=== PATIENT | male | born 1940 | race Caucasian/White ===

== ENCOUNTER → 2018-12-10 | Day surgery (SDC) | payer MEDICARE ==
[2018-12-07 10:24] LABS: BASOPHILS % 0.7 % (0.0-1.0); EOSINOPHILS # (AUTO) 0.2 (0.0-0.4); EOSINOPHILS % 5.2 % (0.0-6.0); HEMATOCRIT 39.9 % (38.2-49.6); HEMOGLOBIN 12.8 g/dL (14.0-18.0); LYMPHOCYTES # (AUTO) 1.4 (1.0-3.2); LYMPHOCYTES % 33.4 % (18.0-39.1); MEAN CORPUSCULAR HEMOGLOBIN 30.9 pg (28-32); MEAN CORPUSCULAR HGB CONC 32.1 g/dL (31-35); MEAN CORPUSCULAR VOLUME 96.4 fL (81-99); MONOCYTES # (AUTO) 0.3 (0.2-0.8); MONOCYTES % 6.6 % (4.4-11.3); NEUTROPHILS # (AUTO) 2.2 (2.1-6.9); NEUTROPHILS % 53.6 % (38.7-80.0); PLATELET COUNT 257 x10e3/uL (140-360); RED BLOOD COUNT 4.14 x10e6/uL (4.3-5.7); RED CELL DISTRIBUTION WIDTH 14.9 % (11.7-14.4)
--- NOTE | 2018-12-07 10:40 | Diagnostic Imaging Report ---
EXAMINATION: PA and lateral views of the chest. COMPARISON: None CLINICAL HISTORY: Preoperative study for orthopedic procedure DISCUSSION: Lines/tubes: None. Lungs: The lungs are well inflated and clear. There is no evidence of pneumonia or pulmonary edema. Pleura: There is no pleural effusion or pneumothorax. Heart and mediastinum: Atherosclerotic calcification of the thoracic aorta. Otherwise, The cardiomediastinal silhouette is normal. Bones and soft tissues: No acute bony abnormalities. Posttraumatic deformity of the midshaft of the right clavicle. Degenerative changes in the thoracic spine IMPRESSION: No acute cardiopulmonary abnormalities. Signed by: Dr. Dev Persaud M.D. on 12/07/2018 10:36 AM
[2018-12-07 10:49] LABS: ANION GAP 11.3 mmol/L (8-16); CALCIUM 9.9 mg/dL (8.4-10.2); CREATININE, SERUM 1.48 mg/dL (0.72-1.25); POTASSIUM 4.3 mmol/L (3.5-5.1)
[~2018-12-10] MED LIST: ALBUTEROL0.63 MG/3 INH; ALLOPURINOL300 MG PO; BUPIVACAINE HCL 0.5% INJ 30 ML VIAL INJ ONE; CALAN SR120 MG PO; CLINDAMYCIN PHOS 900MG/ 50ML 50 ML IV ONE; DEXAMETHASONE SOD PHOS INJ 4 MG/ML VIAL ONE; FENTANYL CITRATE/PF 100MCG/2 ML INJ ONE; FISH OIL 1,0001 EAC2 PO; FLAX SEED OIL1000 MG PO; GABAPENTIN300 MG PO; LASIX40 MG PO; LIDOCAINE HCL 2% LOCAL INJ 5 ML SDV VIAL INJ ONE; LISINOPRIL10 MG PO; ONDANSETRON HCL INJ 2MG/ML 2ML 2 MG/ML VIAL ONE; PROPOFOL IV EMULSION 10 MG/ML 20 ML VIAL ONE; SEVOFLURANE INHAL SOLN 250 ML PEN BTL ONE; SULINDAC150 MG PO; VIT C PO; WARFARIN SODIUM2 MG PO; XARELTO20 MG PO; ZOCOR20 MG PO
--- OUTSIDE RECORDS SUMMARY | 2018-12-10 10:40 | XMS REPORT ---
Author Author [facility] Address Unknown Phone Unavailable Care Team Providers Care Machine Bander And Cellophaner Helper Name Role Phone SHILPA NUNO Unavailable Unavailable Problems This patient has no known problems. Allergies, Adverse Reactions, Alerts This patient has no known allergies or adverse reactions. Medications This patient has no known medications. Results Test Description Test Time Test Comments Text Results Atomic Results Result Comments CHEST 2 VIEWS 2018-12-07 10:35:00 [facility] [address] [address] Patient Name: BRODIE WATKINS MR #: [id number] : 1940 Age/Sex: 78/M Req #: [id number] Adm Physician: Ordered by: SHILPA NUNO MD Report #: [id number] Location: OR Room/Bed: Procedure: [id number] DX/CHEST 2 VIEWS Exam Date: 12/07/18 Exam Time: 1010 REPORT STATUS: Signed EXAMINATION: PA and lateral views of the chest. SANGEETA RISON: None CLINICAL HISTORY: Preoperative study for orthopedic procedure DISCUSSION: Lines/tubes: None. Lungs: The lungs are well inflated and clear. There is no evidence of pneumonia or pulmonary edema. Pleura: There is no pleural effusion or pneumothorax. Heart and mediastinum: Atherosclerotic calcification of the thoracic aorta. Otherwise, The cardiomediastinal silhouette is normal. Bones and soft tissues: No acute bony abnormalities. Posttraumatic deformity of the midshaft of the right clavicle. Degenerative changes in the thoracic spine IMPRESSION: No acute cardiopulmonary abnormalities. Signed by: Dr. Shilpa Acuna M.D. on 12/07/2018 10:36 AM Dictated By: SHILPA ACUNA MD [id number] Transcribed By: TYLOR on 12/07/18 1036 COPY TO: SHILPA NUNO MD
[2018-12-10 13:55] VITALS: BP 122/85
--- NOTE | 2018-12-10 20:04 | Operative Report ---
DATE OF PROCEDURE: 12/10/2018 SURGEON: Dev Brown MD COMPLAINT MANAGER: Garrett Leonard PA-C. PREOPERATIVE DIAGNOSIS: Chronic osteomyelitis of right 3rd finger. POSTOPERATIVE DIAGNOSIS: Chronic osteomyelitis of right 3rd finger. PROCEDURE: Near-complete amputation of right 3rd finger. INDICATIONS: The patient is a 78-year-old gentleman with a greater than six months' history of a draining wound over the distal aspect of his middle phalanx on his right 3rd finger. There is surrounding cellulitis. He has been treated by the doctors with antibiotics. The drainage and infection has persisted. X-ray show obvious erosion of the distal aspect of the middle phalanx consistent with osteomyelitis. The findings and options have been discussed. Definitive treatment would require partial amputation of the digit. The risks and benefits were explained to the patient. He stated he understood and wished to proceed. PROCEDURE IN DETAIL: The patient was brought to the operating room and placed under general anesthetic. His right upper extremity was prepped and draped in a sterile manner. A preoperative time-out was performed. The extremity was exsanguinated and a proximal tourniquet was inflated to 250 mmHg. A fishmouth type incision was made at the base of the middle phalanx. The incision was carried down through both the extensor and flexor tendons. A periosteal elevator was used to elevate the soft tissue back towards the PIP joint. This allowed a disarticulation of the PIP joint. The distal aspect of the finger was removed. The distal end of the proximal phalanx was debrided using a rongeur forceps. The extensor and flexor tendons were sewn end-to-end over the tip of the bone. The digital nerves were retracted and resected sharply. The wound was thoroughly irrigated. The deep tissue was reapproximated with 2-0 Vicryl. The skin was closed with interrupted 4-0 nylon. A sterile bandage and a splint were applied. About 8 mL of 0.5% Marcaine without epinephrine was used to provide a digital block of that finger. He was extubated and transported to the recovery room in stable condition. There was no blood loss and all needle and sponge counts were correct. Dev Brown MD DR/VELVET /[id number]
== END | disposition home or self-care (01) ==
LOC: OR 10:32
PROVIDERS: ATTEND Specialist
DX: M86.441 Chronic osteomyelitis with draining sinus, right hand (principal); L03.011 Cellulitis of right finger; I11.0 Hypertensive heart disease with heart failure; I50.9 Heart failure, unspecified; I25.10 Atherosclerotic heart disease of native coronary artery without angina pectoris; Z95.5 Presence of coronary angioplasty implant and graft; I48.91 Unspecified atrial fibrillation; E78.5 Hyperlipidemia, unspecified; J43.9 Emphysema, unspecified; J45.909 Unspecified asthma, uncomplicated; Z01.810 Encounter for preprocedural cardiovascular examination; Z01.812 Encounter for preprocedural laboratory examination; Z01.818 Encounter for other preprocedural examination; Z87.891 Personal history of nicotine dependence; Z79.01 Long term (current) use of anticoagulants; Z88.0 Allergy status to penicillin
CPT/HCPCS: 26951; 36415; 71046; 80048; 85025; 88305; 88311; 93005; J1100; J2001; J2405; J2704; 88304; 89060

== ENCOUNTER 2019-02-02 09:46 | Observation (INO) | payer MEDICARE ==
[~2019-02-02] VITALS: Ht 175.3 cm; Wt 104.8 kg
[~2019-02-02 09:46] MED LIST changes: -BUPIVACAINE HCL 0.5% INJ 30 ML VIAL INJ ONE; -CLINDAMYCIN PHOS 900MG/ 50ML 50 ML IV ONE; -DEXAMETHASONE SOD PHOS INJ 4 MG/ML VIAL ONE; -FENTANYL CITRATE/PF 100MCG/2 ML INJ ONE; -LIDOCAINE HCL 2% LOCAL INJ 5 ML SDV VIAL INJ ONE; -ONDANSETRON HCL INJ 2MG/ML 2ML 2 MG/ML VIAL ONE; -PROPOFOL IV EMULSION 10 MG/ML 20 ML VIAL ONE; -SEVOFLURANE INHAL SOLN 250 ML PEN BTL ONE
[2019-02-02 10:27] LABS: BASOPHILS % 0.4 % (0.0-1.0); EOSINOPHILS # (AUTO) 0.1 (0.0-0.4); EOSINOPHILS % 1.7 % (0.0-6.0); HEMATOCRIT 30.4 % (38.2-49.6); HEMOGLOBIN 9.8 g/dL (14.0-18.0); LYMPHOCYTES % 13.8 % (18.0-39.1); MEAN CORPUSCULAR HEMOGLOBIN 30.2 pg (28-32); MEAN CORPUSCULAR HGB CONC 32.2 g/dL (31-35); MEAN CORPUSCULAR VOLUME 93.8 fL (81-99); MONOCYTES # (AUTO) 0.5 (0.2-0.8); MONOCYTES % 7.1 % (4.4-11.3); NEUTROPHILS # (AUTO) 5.7 (2.1-6.9); NEUTROPHILS % 75.8 % (38.7-80.0); PLATELET COUNT 245 x10e3/uL (140-360); RED BLOOD COUNT 3.24 x10e6/uL (4.3-5.7); RED CELL DISTRIBUTION WIDTH 15.2 % (11.7-14.4)
[2019-02-02 10:35] LABS: BILIRUBIN,URINE NEGATIVE (NEGATIVE); CLARITY,URINE CLEAR (CLEAR); COLOR,URINE YELLOW (YELLOW); KETONES,URINE NEGATIVE (NEGATIVE); LEUKOCYTE ESTERASE ,URINE NEGATIVE (NEGATIVE); NITRITE,URINE NEGATIVE (NEGATIVE); PROTEIN,URINE DIPSTICK TRACE (NEGATIVE); URINE UROBILINOGEN 0.2 mg/dL (0.2 - 1)
[2019-02-02 10:39] LABS: INR 1.83; PROTHROMBIN TIME 21.8 seconds (11.9-14.5)
[2019-02-02 10:44] LABS: ALBUMIN 2.9 g/dL (3.5-5.0); ALBUMIN/GLOBULIN RATIO 0.9 (0.8-2.0); ANION GAP 16.1 mmol/L (8-16); CALCIUM 9.5 mg/dL (8.4-10.2); CREATININE, SERUM 1.94 mg/dL (0.72-1.25); POTASSIUM 4.1 mmol/L (3.5-5.1)
[2019-02-02 10:55] LABS: BACTERIA,URINE FEW /HPF; EPITHELIAL CELLS,URINE FEW /LPF; RBC,URINE 0-5 /HPF (0-5); WBC,URINE (MAN) 0-5 /HPF (0-5)
[2019-02-02 11:21] LABS: CREATINE KINASE MB 0.8 ng/mL (0-5.0)
--- NOTE | 2019-02-02 12:02 | Diagnostic Imaging Report ---
EXAMINATION: CHEST SINGLE (PORTABLE) INDICATION: ^mild sob, BNP 191 ^[id number] ^1125 COMPARISON: 12/07/2018 FINDINGS: AP view TUBES and LINES: None. LUNGS: Limited by body habitus. Lungs are well inflated. There is no evidence of pneumonia or pulmonary edema. PLEURA: No pleural effusion or pneumothorax. HEART AND MEDIASTINUM: The cardiomediastinal silhouette is mildly enlarged on this AP view. BONES AND SOFT TISSUES: No acute osseous lesion. Soft tissues are unremarkable. UPPER ABDOMEN: No free air under the diaphragm. IMPRESSION: No acute thoracic abnormality. Signed by: Dr. Charlie Villa MD on 02/02/2019 11:58 AM
--- NOTE | 2019-02-02 12:04 | Diagnostic Imaging Report ---
LOWER LEG RIGHT - 2 views HISTORY: Pain COMPARISON: None available. FINDINGS: Bones: Distal bilateral malleoli are excluded from the image on frontal view. No acute displaced fracture. Osseous alignment is within normal limits. Joints: Degenerative changes of the knee. Soft tissues: Mild edema. IMPRESSION: No acute radiographic abnormality. Signed by: Dr. Charlie Villa MD on 02/02/2019 12:01 PM
[2019-02-02] MEDS ORDERED: ACETAMINOPHEN 325 MG TAB PO PRN (12:30)
[2019-02-02] MEDS ORDERED: MORPHINE SULFATE 2 MG/ML SYR 1ML IV PRN (12:30)
[2019-02-02] MEDS ORDERED: DEXTROSE 50% SYRINGE 50 ML IV PRN (12:30)
[2019-02-02] MEDS ORDERED: MORPHINE SULFATE INJ 4 MG/ML INJ 1ML IV PRN (13:00)
[2019-02-02] MEDS ORDERED: KETOCONAZOLE120 ML (13:03)
[2019-02-02] MEDS ORDERED: SIMVASTATIN20 MG PO (13:03)
[2019-02-02] MEDS ORDERED: HYDROCORTISONE15 G2 (13:03)
[2019-02-02 14:00] VITALS: BP 127/57
--- NOTE | 2019-02-02 14:20 | NUR ---
PT ARRIVED FROM ER VIA STRETCHER ON ROOM AIR, IV TO LEFT AC WITHOUT COMPLICATIONS. CELLULITIS TO RIGHT LEG INJURY AND GOUT TO THE LEFT TOE. PATIENT HAS WALKER FROM HOME. LET PATIENT KNOW TO ASK FOR ASSISTANCE. SIDE RAILS UP X2, BED IN LOWEST POSITION, AND CALL MILTON WITHIN REACH.
[2019-02-02 14:35] VITALS: BP 127/57
[2019-02-02] MEDS: INSULIN REGULAR, HUMAN 100 UNIT/1 ML 3ML VIAL SQ SCH ×2 (16:16→20:29)
[2019-02-02 16:24] VITALS: BP 111/51
[2019-02-02] MEDS ORDERED: SODIUM CHLORIDE 0.9% 1000ML 1,000 ML ONE (18:41)
[2019-02-02] MEDS: LEVOFLOXACIN 500MG/D5W 100ML 100 ML IV SCH ×2 (18:52→19:08)
--- NOTE | 2019-02-02 18:55 | NUR ---
PATIENT IS IN BED WITH NO S/S OF DISTRESS. BED IN LOWEST POSITION, SIDE RAILS UP X2, AND CALL MILTON WITHIN REACH.
--- NOTE | 2019-02-02 19:20 | NUR ---
Patient visited in room during nursing rounds. Patient alert and oriented x3. No distress or discomfort noted. On scheduled IV antibiotics. Patient ambulates in room prn with standby assist. Call howell within reach. Will monitor closely.
[2019-02-02 20:00] VITALS: BP_SYST 111; BP_SYST 114; BP_DIAS 51; BP_DIAS 68
[2019-02-02] MEDS ORDERED: VANCOMYCIN 1GM/NS 250 ML 250 ML IV SCH (20:00)
[2019-02-03] VITALS: BP 109/53
[2019-02-03 04:00] VITALS: BP 106/45
--- NOTE | 2019-02-03 07:10 | NUR ---
Pt received resting in bed. Alert and oriented x4. On home BIPAP. Oriented to staff and surroundings. Encouraged to press call howell if help needed. Emotional support given. Will monitor
[2019-02-03] MEDS: INSULIN REGULAR, HUMAN 100 UNIT/1 ML 3ML VIAL SQ SCH (07:30)
[2019-02-03 08:05] VITALS: BP 125/70
[2019-02-03] MEDS ORDERED: IBUPROFEN 100 MG/5 ML SUSP PO SCH (09:00)
[2019-02-03] MEDS ORDERED: LEVOFLOXACIN 500MG/D5W 100ML 100 ML IV SCH (09:00)
[2019-02-03] MEDS ORDERED: FUROSEMIDE 40 MG TAB PO SCH (09:00)
[2019-02-03] MEDS ORDERED: VANCOMYCIN 1GM/NS 250 ML 250 ML IV SCH (09:00)
[2019-02-03] MEDS ORDERED: GABAPENTIN 300 MG CAP PO SCH (09:00)
[2019-02-03 09:04] VITALS: BP 125/70
--- NOTE | 2019-02-03 09:10 | NUR ---
All meds given as ordered. Call howell within reach. Will monitor
--- NOTE | 2019-02-03 10:04 | NUR ---
Dressing change to right pérez done. Pt is for discharge this AM. Will monitor
--- NOTE | 2019-02-03 10:48 | NUR ---
Pt given discharge instructions regarding meds, diet, activities, s/s to report, and follow up with PCP in the morning. Pt verbalized understanding of teaching. Awaiting to pick him up. Will monitor
--- NOTE | 2019-02-03 11:24 | NUR ---
Pt left in wheelchair to 's car with all belongings.
[2019-02-03] MEDS ORDERED: WARFARIN SOD 2 MG TAB PO SCH (17:00)
[2019-02-03] MEDS ORDERED: VERAPAMIL HCL 120 MG TABSR PO SCH (21:00)
[2019-02-03] MEDS ORDERED: LISINOPRIL 20 MG TAB PO SCH (21:00)
--- NOTE | 2019-02-07 06:13 | Discharge Summary ---
DISCHARGE DIAGNOSIS: Right lower extremity cellulitis. HISTORY OF PRESENT ILLNESS: The patient is a gentleman, who presented with a low-grade fever, evidence of right lower extremity cellulitis, who lives alone, placed on IV antibiotics, where within 24 hours he made progress and the patient was adamant that he needed to be discharged due to financial needs office each day and get Rocephin shots to help improve his chances of healing, which the patient was agreeable to. So, he is being discharged home with continuation of his home medications, to follow up the next day for daily Rocephin shot. Please see hospital chart for full details. MD ANUSHA Jj/VELVET /[id number]
== END 2019-02-03 11:57 | disposition home or self-care (01) ==
LOC: ER 09:46 → ERHOLD 12:28 → MED/SURG3 14:28
PROVIDERS: ADMIT Internal Medicine; ATTEND Internal Medicine
DX: L03.115 Cellulitis of right lower limb (principal); I48.91 Unspecified atrial fibrillation; E11.22 Type 2 diabetes mellitus with diabetic chronic kidney disease; I12.9 Hypertensive chronic kidney disease with stage 1 through stage 4 chronic kidney disease, or unspecified chronic kidney disease; N18.3 Chronic kidney disease, stage 3 (moderate); Z88.0 Allergy status to penicillin; Z87.891 Personal history of nicotine dependence; Z83.3 Family history of diabetes mellitus; Z82.49 Family history of ischemic heart disease and other diseases of the circulatory system; D63.1 Anemia in chronic kidney disease; E66.9 Obesity, unspecified; Z68.34 Body mass index [BMI] 34.0-34.9, adult; Z79.01 Long term (current) use of anticoagulants
CPT/HCPCS: 36415; 71045; 73590; 80053; 81001; 82550; 82553; 82948; 83735; 83880; 84484; 85025; 85610; 85730; 87040; 87086; 87186; 93005; 93971; 99284; G0378 ×2; J1956; J2270; J3370; J7030

== ENCOUNTER 2019-02-05 18:15 | Inpatient (IN) | payer MEDICARE ==
[~2019-02-05] VITALS: Ht 175.3 cm; Wt 104.8 kg
[~2019-02-05 18:15] MED LIST changes: +HYDROCORTISONE15 G2; +KETOCONAZOLE120 ML; +SIMVASTATIN20 MG PO
[2019-02-05] MEDS ORDERED: ACETAMINOPHEN 325 MG TAB ONE (19:25)
[2019-02-05] MEDS ORDERED: ACETAMINOPHEN 325 MG TAB PO ONE (19:30)
[2019-02-05 19:47] LABS: BASOPHILS % 0.3 % (0.0-1.0); EOSINOPHILS % 0.1 % (0.0-6.0); HEMATOCRIT 32.8 % (38.2-49.6); HEMOGLOBIN 10.9 g/dL (14.0-18.0); LYMPHOCYTES # (AUTO) 1.2 (1.0-3.2); LYMPHOCYTES % 8.1 % (18.0-39.1); MEAN CORPUSCULAR HEMOGLOBIN 30.9 pg (28-32); MEAN CORPUSCULAR HGB CONC 33.2 g/dL (31-35); MEAN CORPUSCULAR VOLUME 92.9 fL (81-99); MONOCYTES # (AUTO) 0.9 (0.2-0.8); MONOCYTES % 6.1 % (4.4-11.3); NEUTROPHILS # (AUTO) 12.2 (2.1-6.9); NEUTROPHILS % 83.5 % (38.7-80.0); PLATELET COUNT 396 x10e3/uL (140-360); RED BLOOD COUNT 3.53 x10e6/uL (4.3-5.7)
[2019-02-05 20:00] LABS: INR 1.22
[2019-02-05 20:01] LABS: PARTIAL THROMBOPLASTIN TIME 42.8 seconds (23.8-35.5)
--- NOTE | 2019-02-05 20:01 | Diagnostic Imaging Report ---
EXAMINATION: CHEST SINGLE (NOT PORTABLE) INDICATION: ^fever COMPARISON: Chest x-ray 02/02/2019. FINDINGS: AP view TUBES and LINES: None. LUNGS: Lungs are well inflated. Lungs are clear. There is no evidence of pneumonia or pulmonary edema. PLEURA: No pleural effusion or pneumothorax. HEART AND MEDIASTINUM: The cardiomediastinal silhouette is unremarkable. There are atherosclerotic calcifications within the aorta. BONES AND SOFT TISSUES: No acute osseous lesion. Left rotator cuff anchor sutures. Soft tissues are unremarkable. UPPER ABDOMEN: No free air under the diaphragm. IMPRESSION: No acute thoracic abnormality. Signed by: Dr. Sharan Williamson M.D. on 02/05/2019 7:57 PM
[2019-02-05 20:08] LABS: ALBUMIN 2.9 g/dL (3.5-5.0); ALBUMIN/GLOBULIN RATIO 0.6 (0.8-2.0); ANION GAP 15.4 mmol/L (8-16); CREATININE, SERUM 1.36 mg/dL (0.72-1.25); MAGNESIUM 1.7 MG/DL (1.3-2.1); POTASSIUM 4.4 mmol/L (3.5-5.1)
[2019-02-05 20:15] LABS: CREATINE KINASE MB 0.5 ng/mL (0-5.0)
[2019-02-05] MEDS ORDERED: SODIUM CHLORIDE 0.9% 1000ML 1,000 ML IV ONE (20:15)
[2019-02-05 20:16] LABS: B-TYPE NATRIURETIC PEPTIDE2 326.1 pg/mL (0-100)
[2019-02-05 20:32] LABS: BILIRUBIN,URINE SMALL (NEGATIVE); CLARITY,URINE SL CLOUDY (CLEAR); COLOR,URINE YELLOW (YELLOW); KETONES,URINE TRACE (NEGATIVE); LEUKOCYTE ESTERASE ,URINE NEGATIVE (NEGATIVE); NITRITE,URINE NEGATIVE (NEGATIVE); PROTEIN,URINE DIPSTICK 2+ (NEGATIVE); URINE UROBILINOGEN 0.2 mg/dL (0.2 - 1)
[2019-02-05 20:51] LABS: BACTERIA,URINE MANY /HPF; EPITHELIAL CELLS,URINE MODERATE /LPF; RBC,URINE 0-5 /HPF (0-5); WBC,URINE (MAN) 0-5 /HPF (0-5)
--- NOTE | 2019-02-05 20:55 | NUR ---
DR DREW INST VERBALLY NOT TO GIVE 1 LITER NS BOLUS - NOT GIVEN
[2019-02-05] MEDS ORDERED: VERAPAMIL HCL120 MG PO (21:02)
[2019-02-05] MEDS ORDERED: ALLOPURINOL300 MG PO (21:02)
[2019-02-05] MEDS ORDERED: LATANOPROST2.5 ML OU (21:02)
[2019-02-05] MEDS ORDERED: LISINOPRIL40 MG PO (21:02)
[2019-02-05] MEDS ORDERED: FUROSEMIDE40 MG PO (21:02)
[2019-02-05] MEDS ORDERED: LEVOFLOXACIN 500MG/D5W 100ML 100 ML IV SCH (21:45)
[2019-02-05] MEDS ORDERED: DEXTROSE 50% SYRINGE 50 ML IV PRN (21:45)
[2019-02-05] MEDS ORDERED: ONDANSETRON HCL INJ 2MG/ML 2ML 2 MG/ML VIAL IV PRN (21:45)
[2019-02-05] MEDS ORDERED: WARFARIN SODIU2.5 MG PO (21:55)
[2019-02-05] MEDS: VANCOMYCIN 1GM/NS 250 ML 250 ML IV SCH (22:00)
[2019-02-05 22:26] VITALS: BP 127/59
[2019-02-05] MEDS ORDERED: SODIUM CHLORIDE 0.9% 250ML 250 ML ONE (22:57)
[2019-02-06] VITALS (9 sets, daily range): BP systolic 109–141; BP diastolic 59–67
--- NOTE | 2019-02-06 00:56 | NUR ---
PT IS TRANSFERRED FROM ER /PT IS AOX3 .RESPIRATIONS ARE EVEN AND UNLABORED.RT LOWER RED AND SWOLLEN LEFT LEG DRY AND RED IV AT LEFT AC .PT DENIES PAIN ORIENTED THE PT TO THE ENVIRONMENT ,CALL LIGHT WITH IN REACH .[id number] TO MONITOR
[2019-02-06] MEDS ORDERED: CEFEPIME HCL 1 GM VIAL IV SCH (06:00)
--- NOTE | 2019-02-06 06:32 | NUR ---
PT RESTING NO ACUTE DISTRESS NOTED .DENIES PAIN .CALL LIGHT WITH IN REACH
[2019-02-06 06:35] LABS: BASOPHILS % 0.3 % (0.0-1.0); EOSINOPHILS % 0.3 % (0.0-6.0); HEMOGLOBIN 9.6 g/dL (14.0-18.0); LYMPHOCYTES # (AUTO) 0.9 (1.0-3.2); LYMPHOCYTES % 9.4 % (18.0-39.1); MEAN CORPUSCULAR HEMOGLOBIN 30.4 pg (28-32); MEAN CORPUSCULAR HGB CONC 33.1 g/dL (31-35); MEAN CORPUSCULAR VOLUME 91.8 fL (81-99); MONOCYTES # (AUTO) 0.6 (0.2-0.8); MONOCYTES % 6.2 % (4.4-11.3); NEUTROPHILS # (AUTO) 7.7 (2.1-6.9); NEUTROPHILS % 82.2 % (38.7-80.0); PLATELET COUNT 339 x10e3/uL (140-360); RED BLOOD COUNT 3.16 x10e6/uL (4.3-5.7); RED CELL DISTRIBUTION WIDTH 14.7 % (11.7-14.4)
[2019-02-06 06:53] LABS: ALANINE AMINOTRANSFERASE 22 IU/L (0-55); ALBUMIN 2.4 g/dL (3.5-5.0); ALBUMIN/GLOBULIN RATIO 0.7 (0.8-2.0); ALKALINE PHOSPHATASE 174 IU/L (40-150); ANION GAP 14.3 mmol/L (8-16); BLOOD UREA NITROGEN 28 mg/dL (7-26); BUN/CREATININE RATIO 27 (6-25); CALCIUM 9.4 mg/dL (8.4-10.2); CARBON DIOXIDE 23 mmol/L (22-29); CHLORIDE 102 mmol/L (98-107); CREATININE, SERUM 1.05 mg/dL (0.72-1.25); EST GLOMERULAR FILTRATION RATE > 60 ML/MIN (60-); GLUCOSE 94 mg/dL (74-118); POTASSIUM 4.3 mmol/L (3.5-5.1); SODIUM 135 mmol/L (136-145)
--- NOTE | 2019-02-06 07:12 | NUR ---
BEDSIDE REPORT GIVEN TO THE ONCOMING NURSE
[2019-02-06] MEDS: INSULIN REGULAR, HUMAN 100 UNIT/1 ML 3ML VIAL SQ SCH ×4 (07:30→20:47)
[2019-02-06] MEDS: CEFEPIME 1GM/NS 0.9% 50 ML 50 ML IV SCH ×2 (08:55→16:21)
[2019-02-06] MEDS: GABAPENTIN 300 MG CAP PO SCH ×3 (08:55→21:07)
[2019-02-06] MEDS ORDERED: WARFARIN SOD 2.5 MG TAB PO SCH (09:00)
--- NOTE | 2019-02-06 09:30 | NUR ---
Pt having a lot of wheezing and coughing. Pt states he does albuterol nebs at home and asks if he can have them here. Dr. Tee notified and received orders to restart nebs.
[2019-02-06] MEDS ORDERED: ALBUTEROL SULF 0.083% NEB SOLN 3 ML NEB NEB PRN (09:45)
[2019-02-06] MEDS: ALBUTEROL SULF 0.083% NEB SOLN 3 ML NEB NEB PRN ×2 (11:31→20:00)
--- NOTE | 2019-02-06 12:52 | NUR ---
Pt received in bed at this time with eyes open. AOX4 and able to verbalize needs. Denies any pain at this time.
--- NOTE | 2019-02-06 15:19 | NUR ---
WOUND CARE INITIAL CONSULTATION. 78 YEAR OLD MALE ADMITTED TO [facility] WITH DX CELLULITIS TO RIGHT FOOT. HEAD TO TOE SKIN ASSESSMENT PERFORMED TODAY, PT STATES HE WAS TRYING TO GET ON A MOVING BOARD AND SUSTAINED A FALL ABOUT THREE WEEKS AGO AND SCRAPED HIS RIGHT LOWER LEG. STATES I "TRIED TO TAKE CARE OF IT WITH BETADINE, BUT IT DIDN'T DO ANY GOOD". WOUND TO RIGHT LOWER LEG MEASURES APPROXIMATELY 5X5X0.2CM. 85% GRANULAR. RIGHT LATERAL LOWER LEG PRESENTS WITH AN AREA OF 3X1CM OF ECCHYMOSIS. CELLULITIS AND 4+ PITTING EDEMA TO RIGHT LOWER LEG. NO OTHER AREAS OF CONCERN NOTED AT THIS TIME. LABS: ALB: 2.4 BLOOD AND URINE CX RESULTS ARE PENDING. RECOMMENDATIONS: PLACE PT ON ALTERNATING LOW AIR LOSS MATTRESS. PROVIDE PT WITH BILATERAL HEEL PROTECTORS AND PILLOW SUSPENSIONS TURN PT EVERY TWO HOURS AND PRN. CLEAN RIGHT LOWER LEG WITH NS, APPLY MESALT AND COVER WITH 4X4 GAUZE AND KERLIX. CHANGE DRESSING DAILY. THANKS DR NAGEL FOR THIS CONSULTATION. Addendum: 02/06/19 at 1526 by Doreen Garza RN Amended: Links added. Addendum: 07/10/19 at 1531 by Doreen Garza RN RIGHT LOWER LEG WOUND IS 85% NECROTIC WITH SLOUGH WITH WOUND BED.
[2019-02-06] MEDS: WARFARIN SOD 5 MG TAB PO SCH (16:47)
[2019-02-06] MEDS: ACETAMINOPHEN 325 MG TAB PO PRN (17:10)
--- NOTE | 2019-02-06 19:30 | NUR ---
Patient visited in room during nursing rounds. Patient alert and oriented x3. No distress or discomfort noted. Patient on bedrest at this time and appear weak especially on bilateral lower extremities. BLE edema with right more edematous than left. Wound on right leg (pérez area) covered mesalt, 4x4 gauze and kerlix. Pt on scheduled IV antibiotics. On 2L NC. Call howell within reach. Will monitor closely.
[2019-02-06] MEDS: VERAPAMIL HCL 120 MG TABSR PO SCH (21:10)
[2019-02-06] MEDS: VANCOMYCIN 1GM/NS 250 ML 250 ML IV SCH (21:20)
[2019-02-07] VITALS (7 sets, daily range): BP systolic 105–126; BP diastolic 51–64
[2019-02-07] MEDS: CEFEPIME 1GM/NS 0.9% 50 ML 50 ML IV SCH ×3 (01:38→17:42)
[2019-02-07 06:16] LABS: INR 1.29; PROTHROMBIN TIME 16.7 seconds (11.9-14.5)
--- NOTE | 2019-02-07 07:00 | NUR ---
Pt received in bed with eyes open. Aox4 and able to verbalize needs. Denies any pain at this time. Pt states he is feeling better today. Dressing to right leg is dry and intact.
[2019-02-07] MEDS: ALBUTEROL SULF 0.083% NEB SOLN 3 ML NEB NEB PRN (07:28)
[2019-02-07] MEDS: INSULIN REGULAR, HUMAN 100 UNIT/1 ML 3ML VIAL SQ SCH ×4 (07:30→20:34)
[2019-02-07] MEDS: GABAPENTIN 300 MG CAP PO SCH ×3 (08:52→20:34)
[2019-02-07] MEDS: ACETAMINOPHEN 325 MG TAB PO PRN (15:38)
--- NOTE | 2019-02-07 16:00 | NUR ---
Received order for PT eval and treat from Dr. Tee. Physical therapy did evaluation and recommend rehab for strengthening. Pt is not agreeable to rehab at this time.
[2019-02-07] MEDS: WARFARIN SOD 5 MG TAB PO SCH (17:43)
--- NOTE | 2019-02-07 19:35 | NUR ---
Patient visited in room during nursing rounds. Patient alert and oriented x3. No distress or discomfort noted. Patient on bedrest at this time and appear weak especially on bilateral lower extremities. BLE edema with right more edematous than left. Wound on right leg (pérez area) covered mesalt, 4x4 gauze and kerlix. Redness and swelling with small scab noted on right elbow. Pt uses home CPAP at bedside prn. Pt on scheduled IV antibiotics. On 2L NC. Call howell within reach. Will monitor closely.
[2019-02-07] MEDS: VERAPAMIL HCL 120 MG TABSR PO SCH (20:34)
[2019-02-07] MEDS ORDERED: SODIUM CHLORIDE 0.9% 250ML 250 ML ONE (22:55)
[2019-02-07] MEDS: VANCOMYCIN 1GM/NS 250 ML 250 ML IV SCH (22:57)
--- NOTE | 2019-02-07 23:30 | NUR ---
Dr. Tee came and visited pt in room. aware of pt condition. No new orders given at this time.
[2019-02-08] VITALS (9 sets, daily range): BP systolic 99–135; BP diastolic 58–67
[2019-02-08] MEDS: CEFEPIME 1GM/NS 0.9% 50 ML 50 ML IV SCH ×3 (01:51→16:50)
[2019-02-08 05:56] LABS: INR 1.42; PROTHROMBIN TIME 17.9 seconds (11.9-14.5)
--- NOTE | 2019-02-08 06:58 | NUR ---
RECEIVED PATIENT RESTING IN BED. NO ACUTE DISTRESS NOTED. DENIES PAIN OR DISCOMFORT AT THIS TIME. CALL LIGHT WITHIN REACH. BED IN THE LOWEST POSITION. BED ALARM ON.
[2019-02-08] MEDS: INSULIN REGULAR, HUMAN 100 UNIT/1 ML 3ML VIAL SQ SCH ×4 (07:30→20:55)
[2019-02-08] MEDS: GABAPENTIN 300 MG CAP PO SCH ×3 (08:52→20:54)
--- NOTE | 2019-02-08 10:55 | NUR ---
WOUND DRESSING CHANGED AT THIS TIME. PATIENT TOLERATED IT WELL.
--- NOTE | 2019-02-08 11:46 | NUR ---
BED PUMP APPLIED TO BED AT THIS TIME. HEEL PROTECTORS ALSO APPLIED AT THIS TIME.
--- NOTE | 2019-02-08 13:45 | NUR ---
PT REQUIRING MAX ASSIST WITH P.T. P.T. RECOMMENDING SNF CM SPOKE WITH PT AT LENGTH REGARDING SNF AND HE IS REFUSING STATES HIS HELPS HIM WITH EVERYTHING AT HOME IS AGREEABLE TO HOME HEALTH FOR P.T. AND WOUND CARE USING HIS HOME CPAP NOTE ON CHART FOR DR NAGEL ASKING FOR HOME HEALTH
[2019-02-08] MEDS: ACETAMINOPHEN 325 MG TAB PO PRN (14:50)
--- NOTE | 2019-02-08 16:33 | NUR ---
PT'S HERE TO VISIT SHE SPOKE WITH PT AND CONVINCED HIM THAT SNF WOULD BE BEST FOR HIM BEFORE DC HOME PT AGREEABLE CALLED DR NAGEL FOR SNF ORDER
[2019-02-08] MEDS: WARFARIN SOD 5 MG TAB PO SCH (16:51)
--- NOTE | 2019-02-08 19:15 | NUR ---
REPORT GIVEN TO ONCOMING NURSE. PATIENT IS RESTING IN BED. NO ACUTE DISTRESS NOTED. CALL LIGHT WITHIN REACH. BED IN THE LOWEST POSITION. BED ALARM ON.
--- NOTE | 2019-02-08 19:38 | NUR ---
PT IS RESTING IN BED. RESPIRATION IS EVEN AND UNLABORED, NO DISTRESS NOTED. BED IN THE LOWEST POSITION, LOCKED, BED ALARM ON, AND CALL LIGHT WITHIN REACH. WILL CONTINUE TO MONITOR.
[2019-02-08] MEDS: ALBUTEROL SULF 0.083% NEB SOLN 3 ML NEB NEB PRN (20:15)
[2019-02-08] MEDS: VERAPAMIL HCL 120 MG TABSR PO SCH (20:54)
[2019-02-08] MEDS: VANCOMYCIN 1GM/NS 250 ML 250 ML IV SCH (20:55)
--- NOTE | 2019-02-08 23:36 | Consultation ---
DATE OF CONSULTATION: 02/08/2019 REASON FOR CONSULTATION: Cellulitis of the right leg. Thank you so much for asking me to see this patient. HISTORY OF PRESENT ILLNESS: This patient is a very pleasant 78-year-old white male with history of gout. The patient also has history of neuropathy. He has history of diabetes mellitus. Apparently two months ago, he had a cut on his right leg. He has been taking several oral antibiotic plus IM Rocephin. He has been to his physician twice. He has been to an Urgent Care once, without any improvement. But also of interest, the patient's tells me that he has been getting progressively weak over the last 6 months and also at this time they had to carry him over to come here. The patient also did have a recurrent episode of gout. The patient was admitted. There is no fever or chills, but leg is warm, red, and swollen and he is weak. MEDICATIONS: He is on Neurontin, cefepime, vancomycin, Calan SR, Coumadin, and insulin. PAST MEDICAL HISTORY: As above. PAST SURGICAL HISTORY: Denies. SOCIAL HISTORY: There is no smoking, drug abuse, or alcohol abuse. ALLERGIES: PENICILLIN. REVIEW OF SYSTEMS: HEENT: There is no headache, visual changes, hearing changes. GI: There is no nausea, no vomiting, no diarrhea. CARDIAC: There is no arrhythmia. NEURO: No seizure activity. SKIN: There is no other rash except on the leg where there is redness and swollen. All other systems within normal limits. MEDICATION LIST: Reviewed. LABORATORY DATA: White count on admission was 14.54 and today is 9.4, hemoglobin 9.6, hematocrit 29, and his platelets 239. PHYSICAL EXAMINATION: GENERAL: He is currently alert and oriented, does not seem to be in acute distress. VITAL SIGNS: Stable, afebrile. HEENT: He is not icteric. NECK: Supple. CHEST: Clear. HEART: S1, S2. No S3, S4, or murmur. ABDOMEN: Soft. Bowel sounds present. No tenderness. EXTREMITIES: There is erythema, there is edema involving his leg. IMPRESSION AND PLAN: 1. Cellulitis of the right leg, failed antibiotic. Agree with the above. Vancomycin and cefepime. I think there is a component of lymphedema and venous stasis. Agree with local care. Keep the leg elevated. ELIZABETH wrap on every morning. The superficial wound, we would recommend to keep the wound clean and dry, clean daily, apply local Neosporin, then 4 x 4, then ELIZABETH wrap. 2. Gout. We will observe for now. I am not sure if there is any activity, recommend to obtain uric acid. 3. Debility and weakness. Recommend neuro evaluation. Check his thyroid, RBC, folate, and RPR. We will follow. MD MAXIMILIAN Phillips/MODL /[id number]
[2019-02-09] VITALS (7 sets, daily range): BP systolic 119–136; BP diastolic 56–61
[2019-02-09] MEDS: CEFEPIME 1GM/NS 0.9% 50 ML 50 ML IV SCH ×3 (00:22→16:28)
--- NOTE | 2019-02-09 06:58 | NUR ---
RECEIVED PATIENT RESTING IN BED. NO ACUTE DISTRESS NOTED. CALL LIGHT WITHIN REACH. BED IN THE LOWEST POSITION.
[2019-02-09] MEDS: INSULIN REGULAR, HUMAN 100 UNIT/1 ML 3ML VIAL SQ SCH ×4 (07:30→20:38)
--- NOTE | 2019-02-09 08:28 | Progress Note ---
DATE: 02/09/2019 SUBJECTIVE: The patient is a 78-year-old male, who comes in with cellulitis of the right lower extremity. The patient also had leukocytosis. The patient has history of atrial fibrillation and chronic kidney disease. Currently on antibiotics. No complaints, except for weakness, which is marked in the lower extremity. SNF order has been done, it is on process. The patient has no chest pain, no shortness of breath, and/or no nausea, vomiting, or diarrhea. MEDICATIONS: Include cefepime, vancomycin, verapamil 120, gabapentin 300, warfarin 5 mg daily, insulin sliding scale, and the patient is also on Zofran as needed. PHYSICAL EXAMINATION: VITAL SIGNS: Temperature is 98.7, pulse of 71, respirations of 19, blood pressure is 123/59, pulse oximetry 95%. HEENT: Normocephalic, atraumatic. The patient is using his CPAP machine at this time. CVS: S1 and S2 irregular. ABDOMEN: Nontender, nondistended. EXTREMITIES: Bilateral lower extremities in bandages. 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 LABORATORY VALUES: White count has come down from 14,000, currently unknown. We will check it tomorrow. Toxicology, the patient's vancomycin trough was 7.1 on 02/07. We will repeat another one. ASSESSMENT: 1. Cellulitis of the right lower extremity. The patient is on cefepime and on vancomycin. Cultures will be done. No growth on urine culture and blood cultures so far. 2. Diabetes mellitus. Continue monitoring the patient's sugars. 3. Atrial fibrillation, on warfarin. PT and INR to be checked daily. 4. Congestive heart failure. Continue monitoring the patient's intake and output. 5. Dyspnea and debility. The patient needs SNF evaluation for further care and also ongoing treatment of antibiotics. Further recommendation per clinical course. We will continue to monitor the patient. MD JAVON Holland/MODL /[id number]
[2019-02-09] MEDS: GABAPENTIN 300 MG CAP PO SCH ×3 (08:40→20:38)
[2019-02-09 08:46] LABS: INR 1.62; PROTHROMBIN TIME 19.9 seconds (11.9-14.5)
--- NOTE | 2019-02-09 10:25 | NUR ---
WOUND DRESSING TO RIGHT LLE CHANGED AT THIS TIME. PATIENT TOLERATED IT WELL.
--- NOTE | 2019-02-09 12:36 | NUR ---
SPOKE WITH ADRIAN [phone] ABOUT SNF IN [facility], SHE CHOOSE [facility], FILING CHOICE ON CHART, FAXED CLINICALS TO [phone]
[2019-02-09] MEDS: ACETAMINOPHEN 325 MG TAB PO PRN (15:39)
[2019-02-09] MEDS: WARFARIN SOD 5 MG TAB PO SCH (16:29)
--- NOTE | 2019-02-09 19:12 | NUR ---
REPORT GIVEN TO ONCOMING NURSE, WALKING ROUNDS DONE. PATIENT IS RESTING IN BED. NO ACUTE DISTRESS NOTED. NO S/S OF PAIN OR DISCOMFORT NOTED. CALL LIGHT WITHIN REACH. BED IN THE LOWEST POSITION.
--- NOTE | 2019-02-09 19:39 | NUR ---
PT IS RESTING IN BED. RESPIRATION IS EVEN AND UNLABORED, NO DISTRESS NOTED. BED IN THE LOWEST POSITION, LOCKED, AND CALL LIGHT WITHIN REACH. WILL CONTINUE TO MONITOR.
--- NOTE | 2019-02-09 20:15 | Progress Note ---
DATE: 02/09/2019 SUBJECTIVE: Mr. Sanchez is feeling better. The legs slowly getting better. REVIEW OF SYSTEMS: HEENT: Negative. PULMONARY: Negative. CARDIAC: Negative. PHYSICAL EXAMINATION: GENERAL: He is currently alert, oriented, does not seem to be in acute distress. VITAL SIGNS: Stable, currently afebrile. HEENT: Not icteric. NECK: Supple. No JVD. No carotid. No thyromegaly. EXTREMITIES: The right leg has erythema and edema. Ulcer seemed to be superficial. LABORATORY DATA: Reviewed. White count is 9.4, hemoglobin 9.6. His sodium 135, potassium 4.3, and creatinine 1.05. IMPRESSION: 1. Cellulitis of the leg, on cefepime and vancomycin, continue with the same. 2. Bilateral lower extremities edema, elastic stocking. 3. Debility. Continue with PT, OT. Continue IV antibiotic as ordered. We will follow. 4. Diabetes mellitus. 5. Atrial fibrillation, on Coumadin. 6. Congestive heart failure. Discussed with the and the patient. MD MAXIMILIAN Phillips/VELVET /[id number]
[2019-02-09] MEDS: VERAPAMIL HCL 120 MG TABSR PO SCH (20:38)
[2019-02-09] MEDS: VANCOMYCIN 1GM/NS 250 ML 250 ML IV SCH (21:15)
[2019-02-10] VITALS (8 sets, daily range): BP systolic 120–144; BP diastolic 57–62
[2019-02-10] MEDS: CEFEPIME 1GM/NS 0.9% 50 ML 50 ML IV SCH ×3 (00:52→16:54)
[2019-02-10 06:50] LABS: INR 1.87; PROTHROMBIN TIME 22.2 seconds (11.9-14.5)
--- NOTE | 2019-02-10 06:50 | NUR ---
RECEIVED PATIENT RESTING IN BED. NO ACUTE DISTRESS NOTED. DENIES PAIN OR DISCOMFORT. CALL LIGHT WITHIN REACH. BED IN THE LOWEST POSITION.
[2019-02-10] MEDS: INSULIN REGULAR, HUMAN 100 UNIT/1 ML 3ML VIAL SQ SCH ×4 (07:30→20:24)
[2019-02-10] MEDS: GABAPENTIN 300 MG CAP PO SCH ×2 (08:13→15:46)
--- NOTE | 2019-02-10 09:15 | NUR ---
WOUND CARE DONE AT THIS TIME, PATIENT TOLERATED IT WELL.
--- NOTE | 2019-02-10 11:14 | Progress Note ---
DATE: 02/10/2019 SUBJECTIVE: The patient is comfortable, wearing his CPAP nasal pillow. No chest pain noted. No shortness of breath. He is in good spirits. OBJECTIVE: VITAL SIGNS: Temperature is 97.7, T-max is 100, respirations of 18, blood pressure is 122/60, pulse oximetry of 97% on 2 L of oxygen. HEENT: Normocephalic, atraumatic. Pupils are reactive to light and accommodation. CVS: S1, S2 normal. Regular rate and rhythm. ABDOMEN: Nontender, nondistended. EXTREMITIES: Right extremity is in bandage and also on ankle protectors. 1+ edema present bilaterally. LABORATORY DATA: Laboratory values stable from the 10th. His glucoses have been running very well. ASSESSMENT: 1. Cellulitis of the right lower extremity. The patient is on cefepime and vancomycin. Cultures to be followed. 2. Diabetes mellitus. Continue monitoring the patient's sugar. 3. Atrial fibrillation, on warfarin. PT, INR should be checked daily. 4. Congestive heart failure. I's and O's to be monitored and Lasix to be administered as needed. 5. Electrolyte abnormalities, to be followed. 6. Dyspnea and debility. SNF consult has been ordered and the patient will be moved to the SNF when bed available. Blood cultures have been negative and medications include cefepime and vancomycin. Further recommendation and clinical course, we will continue to monitor the patient and possible SNF discharge soon. MD VICKY HollandJ/MODL /[id number]
[2019-02-10] MEDS: ACETAMINOPHEN 325 MG TAB PO PRN (11:18)
[2019-02-10] MEDS: WARFARIN SOD 5 MG TAB PO SCH (16:54)
--- NOTE | 2019-02-10 17:36 | Diagnostic Imaging Report ---
EXAMINATION: CHEST SINGLE (PORTABLE) INDICATION: Pneumonia. COMPARISON: Chest radiograph 02/05/2019. FINDINGS: TUBES and LINES: None. LUNGS: Lungs are well inflated. There is no evidence of pneumonia or pulmonary edema. PLEURA: No pleural effusion or pneumothorax HEART AND MEDIASTINUM: The cardiomediastinal silhouette is unremarkable. There are atherosclerotic calcifications within the aorta. BONES AND SOFT TISSUES: No acute osseous lesion. Soft tissues are unremarkable. UPPER ABDOMEN: No free air under the diaphragm. IMPRESSION: No evidence of pneumonia. Signed by: Dr. Manfred De La Garza MD on 02/10/2019 5:33 PM
[2019-02-10 18:36] LABS: BASOPHILS # (AUTO) 0.1 (0.0-0.1); BASOPHILS % 0.4 % (0.0-1.0); EOSINOPHILS # (AUTO) 0.1 (0.0-0.4); EOSINOPHILS % 0.5 % (0.0-6.0); HEMATOCRIT 28.9 % (38.2-49.6); HEMOGLOBIN 9.4 g/dL (14.0-18.0); LYMPHOCYTES # (AUTO) 1.2 (1.0-3.2); LYMPHOCYTES % 7.4 % (18.0-39.1); MEAN CORPUSCULAR HEMOGLOBIN 30.4 pg (28-32); MEAN CORPUSCULAR HGB CONC 32.5 g/dL (31-35); MEAN CORPUSCULAR VOLUME 93.5 fL (81-99); MONOCYTES # (AUTO) 0.7 (0.2-0.8); MONOCYTES % 4.3 % (4.4-11.3); NEUTROPHILS # (AUTO) 14.5 (2.1-6.9); NEUTROPHILS % 85.7 % (38.7-80.0); PLATELET COUNT 497 x10e3/uL (140-360); RED BLOOD COUNT 3.09 x10e6/uL (4.3-5.7); RED CELL DISTRIBUTION WIDTH 15.2 % (11.7-14.4)
--- NOTE | 2019-02-10 19:11 | NUR ---
REPORT GIVEN TO ONCOMING NURSE, WALKING ROUNDS DONE. PATIENT IS IN STABLE CONDITION. NO S/S OF PAIN NOTED. CALL LIGHT WITHIN REACH. BED IN THE LOWEST POSITION.
[2019-02-10] MEDS: VERAPAMIL HCL 120 MG TABSR PO SCH (20:24)
--- NOTE | 2019-02-10 22:25 | Progress Note ---
DATE: 02/10/2019 SUBJECTIVE: Mr. Sanchez is doing well. There is no complaint, but he did have fever earlier of 101.7. REVIEW OF SYSTEMS: HEENT: Negative. PULMONARY: Negative. CARDIAC: Negative. EXTREMITIES: The leg seems to be getting better. No nausea, no vomiting, no diarrhea. PHYSICAL EXAMINATION: GENERAL: He is currently alert, oriented, does not seem to be in acute distress. VITAL SIGNS: Stable, but he did have fever as mentioned above at 101.7. HEENT: He is not icteric. NECK: Supple. CHEST: Clear. HEART: S1 and S2. No S3, S4, or murmur. ABDOMEN: Soft. Bowel sounds present. No tenderness. EXTREMITIES: No edema. The leg seems to be getting better. The erythema is improving. LABORATORY DATA: Reviewed. His chart reviewed. IMPRESSION AND PLAN: 1. Fever, concern of some drug related. Clinically, he looks good. The legs are improving. It could be the Neurontin versus antibiotic. We will stop the Neurontin at the time being. 2. Cellulitis of the leg with ulcer, slowly getting better. 3. Diabetes mellitus with neuropathy. 4. Atrial fibrillation, on Coumadin. 5. Congestive heart failure. 6. Fever. We will obtain blood cultures, chest x-ray, CBC with differential. Discontinue Neurontin and then we will reassess. 7. The next step could be to stop his antibiotic, but we will see. MD MAXIMILIAN Phillips/VELVET /[id number]
[2019-02-10] MEDS: VANCOMYCIN 1GM/NS 250 ML 250 ML IV SCH (22:42)
[2019-02-11] VITALS (8 sets, daily range): BP systolic 126–144; BP diastolic 58–67
[2019-02-11] MEDS: ACETAMINOPHEN 325 MG TAB PO PRN ×2 (00:21→20:59)
[2019-02-11] MEDS: CEFEPIME 1GM/NS 0.9% 50 ML 50 ML IV SCH ×2 (00:21→09:35)
[2019-02-11 06:27] LABS: INR 2.04; PROTHROMBIN TIME 23.7 seconds (11.9-14.5)
[2019-02-11] MEDS: INSULIN REGULAR, HUMAN 100 UNIT/1 ML 3ML VIAL SQ SCH ×4 (07:30→20:49)
--- NOTE | 2019-02-11 07:50 | NUR ---
Bedsid rounding has been completed with the off-going nurse an the pt denies pain or discomfort at this time and no temp elevation noted.
[2019-02-11] MEDS: DAPTOMYCIN 500mg 10ML 500 MG in SODIUM CHLORIDE 0.9% 100 ML IV SCH (13:00)
[2019-02-11] MEDS: ALBUTEROL SULF 0.083% NEB SOLN 3 ML NEB NEB PRN (13:24)
--- NOTE | 2019-02-11 14:58 | NUR ---
CLINICALS SUBMITTED TO INSURANCE TODAY BY [facility] [facility] WHEN APPROVED BY INSURANCE
--- NOTE | 2019-02-11 16:03 | NUR ---
Nutrition Intervention Note RD Recommendation(s) for Physician: -Continue ADA diet as ordered -Rec Glucerna once a day to increase protein-calorie intake Plan of Care: RD following, monitoring for tolerance and adequacy, ONS rec Nutrition reason for involvement: LOS RD Assessment 02/11 - 78-year-old male, who was admitted for cellulitis of the right lower extremity. Visited pt in the room. Pt reported of not having much appetite for the last 6-8 months. Pt denied any nausea or vomiting. Normal BM. Pt denied any chewing or swallowing difficulty. Unknown weight loss hx due to fluid retention. RD rec Glucerna to increase PO intake and pt was agreeable. Will continue to monitor and follow. Principal Problems/Diagnoses: R leg cellulitis PMH: gout, neuropathy, DM, Afib, CHF GI: abdomen soft, non-tender, flatus present Skin: no pressure wound noted Labs: (02/11) reviewed Meds: reviewed Ht: 69in Wt: 231lb BMI: 34.1kg/m2 IBW: 160lb +/- 10% Malnutrition Evaluation (02/11/2019) The patient does not meet criteria for a specified degree of malnutrition at this time. Will re-evaluate at follow-up as appropriate. Nutrition Prescription (Diet Order): ADA 1800 Estimated Nutritional Needs: Calories: 1606 1825kcal (22-25kcal/kg/d) Weight used: IBW Protein: 110 183g (1.5-2.5g/kg/d) Weight used: IBW Diet Adequacy: Not meeting calorie needs, Not meeting protein needs Diet Education Needs Assessment: Diet education not indicated. Nutrition Care Level: low Nutrition Diagnosis: Inadequate oral intake related to current medical condition as evidenced by pt reported of not having much appetite and eating less than usual. Goal: Patient will meet 75-100% of estimated needs by follow up Progress: Progressing Interventions: Carbohydrate-modified diet, Commercial beverage Monitoring/Evaluation: Total energy intake, Total protein intake, Modified diet, Liquid supplement, Weight change Signed: Lo Barillas MS, RD, LD
--- NOTE | 2019-02-11 16:13 | NUR ---
REC'D AUTH TODAY FROM KEYANA AT [facility] SPOKE WITH DR NAGEL; PT WILL TRANSFER IN AM NOTIFIED KEYANA OF TRANSFER IN AM PT AND NOTIFIED OF PLANNED TRANSFER IN AM STATES SHE WANTS TO SPEAK TO DR NAGEL; "I STILL DON'T KNOW WHAT'S WRONG WITH HIM. I'M IN THE DARK" CALLED DR NAGEL'S OFFICE AND ASKED THAT HE CALL AND SPEAK WITH PT'S PLAN TRANSFER TO SNF IN AM AFTER DR NAGEL ROUNDS
[2019-02-11] MEDS: WARFARIN SOD 5 MG TAB PO SCH (17:08)
[2019-02-11] MEDS: VERAPAMIL HCL 120 MG TABSR PO SCH (20:58)
[2019-02-12] VITALS (7 sets, daily range): BP systolic 102–132; BP diastolic 52–62
[2019-02-12] MEDS ORDERED: KETOROLAC TROMETHAMINE 30 MG/ML VIAL IV STA (05:21)
[2019-02-12 05:40] LABS: BASOPHILS # (AUTO) 0.1 (0.0-0.1); BASOPHILS % 0.4 % (0.0-1.0); EOSINOPHILS # (AUTO) 0.1 (0.0-0.4); EOSINOPHILS % 0.5 % (0.0-6.0); HEMATOCRIT 31.6 % (38.2-49.6); HEMOGLOBIN 9.8 g/dL (14.0-18.0); LYMPHOCYTES # (AUTO) 0.9 (1.0-3.2); LYMPHOCYTES % 7.9 % (18.0-39.1); MEAN CORPUSCULAR HEMOGLOBIN 29.6 pg (28-32); MEAN CORPUSCULAR VOLUME 95.5 fL (81-99); MONOCYTES # (AUTO) 0.6 (0.2-0.8); MONOCYTES % 5.5 % (4.4-11.3); NEUTROPHILS # (AUTO) 9.7 (2.1-6.9); NEUTROPHILS % 83.2 % (38.7-80.0); PLATELET COUNT 488 x10e3/uL (140-360); RED BLOOD COUNT 3.31 x10e6/uL (4.3-5.7); RED CELL DISTRIBUTION WIDTH 15.1 % (11.7-14.4)
[2019-02-12 05:50] LABS: INR 2.72; PROTHROMBIN TIME 29.6 seconds (11.9-14.5)
[2019-02-12 05:57] LABS: ALANINE AMINOTRANSFERASE 28 IU/L (0-55); ALBUMIN 2.1 g/dL (3.5-5.0); ALBUMIN/GLOBULIN RATIO 0.5 (0.8-2.0); ALKALINE PHOSPHATASE 322 IU/L (40-150); ANION GAP 15.3 mmol/L (8-16); BLOOD UREA NITROGEN 31 mg/dL (7-26); BUN/CREATININE RATIO 32 (6-25); CALCIUM 9.6 mg/dL (8.4-10.2); CARBON DIOXIDE 23 mmol/L (22-29); CHLORIDE 100 mmol/L (98-107); CREATININE, SERUM 0.96 mg/dL (0.72-1.25); EST GLOMERULAR FILTRATION RATE > 60 ML/MIN (60-); GLUCOSE 95 mg/dL (74-118); POTASSIUM 5.3 mmol/L (3.5-5.1); SODIUM 133 mmol/L (136-145)
[2019-02-12 06:14] LABS: LYMPHOCYTES % (MANUAL) 9 % (19-48); MONOCYTES % (MANUAL) 6 % (3.4-9.0); NEUTROPHILS % (MANUAL) 85 % (40-74); RBC MORPHOLOGY COMMENT NORMAL
[2019-02-12 06:15] LABS: PLATELET ESTIMATE SLIGHTLY INCREASED; PLATELET MORPHOLOGY COMMENT NORMAL
--- NOTE | 2019-02-12 07:00 | NUR ---
Bedside rounds completed and the pt has bi-pap intact. He reports no issues or concerns at this time. Bed rails are uo times 2 and call system is within reach.
--- NOTE | 2019-02-12 07:06 | NUR ---
rounds done, patient resting, was medicated earlier for complaint of pain. call light remain in reach.
[2019-02-12] MEDS: INSULIN REGULAR, HUMAN 100 UNIT/1 ML 3ML VIAL SQ SCH ×3 (07:30→16:04)
[2019-02-12] MEDS: ALBUTEROL SULF 0.083% NEB SOLN 3 ML NEB NEB PRN (09:15)
--- NOTE | 2019-02-12 13:09 | NUR ---
PT ACCEPTED AT [facility], [address], [address] TO BE ASSIGNED BY FACILITY WHEN NURSE CALLS REPORT. PT PASRR COMPLETED FILED IN CHART AND COPY PUT WITH PACKET AND COMPLETED RTF.
[2019-02-12] MEDS: DAPTOMYCIN 500mg 10ML 500 MG in SODIUM CHLORIDE 0.9% 100 ML IV SCH (14:32)
[2019-02-12] MEDS ORDERED: CUBICIN500 MG/VIA IV (14:47)
--- NOTE | 2019-02-12 15:11 | NUR ---
Report to Kavitha at [facility].
[2019-02-12] MEDS: WARFARIN SOD 5 MG TAB PO SCH (16:39)
--- NOTE | 2019-02-12 16:54 | NUR ---
The pt. has been transferred via ambulance for continued treatment at [facility]. He is awake and alert.The spouse was notified by the pt. and he is in stable condition. Report was called to Kavitha at the receiving facility and Dr. Vazquez will be the physician of record. The iv remains intact for antibiotics.
--- NOTE | 2019-02-13 06:44 | Discharge Summary ---
DISCHARGE DIAGNOSIS: Right lower extremity cellulitis. HISTORY OF PRESENT ILLNESS AND HOSPITAL COURSE: See hospital chart for full details. The patient is a gentleman, who failed outpatient treatment for right lower extremity cellulitis, where he was brought in and placed on IV antibiotics, seen by Infectious Disease, which showed daily improvements of his extremity, but due to overall weakness, the patient felt like it would be in his best interest to go to the halfway facility. Continue with the IV antibiotics as well as get more rehab, which is achieved when is then transferred to a halfway facility. The patient realizes that this infection was pretty extensive and is going to take time to improve. Please see hospital chart for full details. MD ANUSHA Jj/VELVET /[id number]
== END 2019-02-12 16:54 | DRG 602 ==
LOC: ER 18:15 → ERHOLD 21:47 → MED/SURG3 22:24
PROVIDERS: ADMIT Internal Medicine; ATTEND Internal Medicine
DX: L03.115 Cellulitis of right lower limb (principal); I50.33 Acute on chronic diastolic (congestive) heart failure; I13.0 Hypertensive heart and chronic kidney disease with heart failure and stage 1 through stage 4 chronic kidney disease, or unspecified chronic kidney disease; I48.2 Chronic atrial fibrillation; M10.9 Gout, unspecified; N18.3 Chronic kidney disease, stage 3 (moderate); E66.9 Obesity, unspecified; Z68.34 Body mass index [BMI] 34.0-34.9, adult
CPT/HCPCS: 36415; 71045; 80053; 80202; 81001; 82550; 82553; 82948; 83605; 83735; 83880; 84484; 85025; 85610; 85730; 87040; 87086; 87186; 93005; 93971; 94640; 97139; 99284; G0378; J0692; J1817; J1885; J1956; J2270; J3370; J7030; J7050

== ENCOUNTER 2019-04-01 11:34 | Emergency (ER) | payer MEDICARE ==
[~2019-04-01] VITALS: Ht 175.3 cm; Wt 104.8 kg
[~2019-04-01 11:34] MED LIST changes: +CUBICIN500 MG/VIA IV; +FUROSEMIDE40 MG PO; +LATANOPROST2.5 ML OU; +LISINOPRIL40 MG PO; +VERAPAMIL HCL120 MG PO; +WARFARIN SODIU2.5 MG PO
== END 2019-04-01 12:47 | disposition home or self-care (01) ==
LOC: ER 11:34
DX: R78.81 Bacteremia (principal); I10 Essential (primary) hypertension; E11.9 Type 2 diabetes mellitus without complications; I50.9 Heart failure, unspecified; E78.5 Hyperlipidemia, unspecified; M10.9 Gout, unspecified
CPT/HCPCS: 99283